=== PATIENT | male | born 1945 | race Hispanic/Latino ===

== ENCOUNTER 2021-08-08 02:04 | Emergency (ER) | payer OTHER ==
[~2021-08-08] VITALS: Ht 172.7 cm; Wt 82.1 kg
[2021-08-08 02:13] VITALS: BP 114/71
[2021-08-08] MEDS ORDERED: LIDOCAINE HCL 2% JELLY 5 ML TP SCH (02:30)
== END 2021-08-08 02:44 | disposition home or self-care (01) ==
LOC: EDH 02:04
DX: L30.4 Erythema intertrigo (principal); Z59.00 Homelessness unspecified
CPT/HCPCS: 99282; 99291; 99292

== ENCOUNTER 2022-03-16 15:09 | Emergency (ER) | payer SELFPAY ==
[2022-03-16 15:37] LABS: BASOPHILS % (AUTO) 0.8 % (0.0-5.0); HEMATOCRIT 30.7 % (42-54); MEAN CORPUSCULAR HEMOGLOBIN 30.3 pg (27.0-33.0); MEAN CORPUSCULAR HGB CONC 32.6 g/dL (32.0-36.0); MONOCYTES % (AUTO) 12.5 % (3.0-13.0); NEUTROPHILS % (AUTO) 56.7 % (40.0-77.0); PLATELET COUNT (AUTO) 180 K/uL (130-400); RED CELL DISTRIBUTION WIDTH 13.6 % (11.0-15.5); WHITE BLOOD COUNT (AUTO) 4.8 K/uL (4.8-10.8)
[2022-03-16 15:56] LABS: CREATININE 0.9 mg/dL (0.5-1.5); POTASSIUM 3.6 mmol/L (3.5-5.1)
[2022-03-16 16:01] LABS: ALBUMIN 2.5 g/dL (3.5-5.0); BILIRUBIN,TOTAL 0.2 mg/dL (0.2-1.0); TOTAL PROTEIN, SERUM 5.8 g/dL (6.0-8.3)
[2022-03-16] MEDS ORDERED: 0.9%NACL 1000ML 1,000 ML IV ONE (16:30)
[2022-03-16 17:31] VITALS: BP 110/97
== END 2022-03-16 18:31 | disposition home or self-care (01) ==
LOC: EDH 15:09
DX: E86.0 Dehydration (principal); R55 Syncope and collapse; J45.909 Unspecified asthma, uncomplicated; Z95.0 Presence of cardiac pacemaker; Z59.00 Homelessness unspecified
CPT/HCPCS: 36415; 80053; 82550; 85025; 93005; 96360; 99284; J7030